=== PATIENT | female | born 1975 | race Caucasian/White ===

== ENCOUNTER 2020-12-08 05:47 | Emergency (ER) | payer MEDICARE ==
[2020-12-08] MEDS ORDERED: MYCOSTATIN100000 UTS PO (10:14)
[2020-12-08] MEDS ORDERED: VFEND PO (10:14)
== END 2020-12-08 10:50 | disposition home or self-care (01) ==
LOC: ER1 05:47
DX: J02.9 Acute pharyngitis, unspecified (principal); B37.9 Candidiasis, unspecified; F17.200 Nicotine dependence, unspecified, uncomplicated; Z20.822 Contact with and (suspected) exposure to COVID-19
CPT/HCPCS: 0240U; 87081; 87880; 99283

== ENCOUNTER → 2021-09-16 | Outpatient (CLI) | payer MEDICARE ==
[~2021-09-16] MED LIST: MYCOSTATIN100000 UTS PO; VFEND PO
== END ==
LOC: MAMO 13:19
DX: N64.4 Mastodynia (principal)
CPT/HCPCS: 76641-LT; 77066; G0279

== ENCOUNTER → 2021-10-14 | Outpatient (CLI) | payer MEDICARE | LOC: MRI 12:39 | DX: E23.0 Hypopituitarism (principal) | CPT/HCPCS: 70553; A9577 ==